=== PATIENT | male | born 1965 | race Caucasian/White ===

== ENCOUNTER 2024-10-26 16:16 | Emergency (ER) | payer OTHER, SELFPAY ==
[2024-10-26 16:19] VITALS: BP 178/105
--- NOTE | 2024-10-26 16:19 | ED.GENMED ---
ED Provider Triage
<Lulu Coffman PA-C - Last Filed: 10/26/24 16:23>
-
Patient seen by provider in Triage?: Seen in Triage
Attestation: A medical screening examination has been initiated by a qualified medical provider. Based on the assessment performed at this time, it has been determined that an emergent medical condition may exist and the patient has been informed
that further medical evaluation and possible additional diagnostic testing may be needed.
HPI: [id number] here with increasing BP over the past month. BP 161/91 today. C/o mild headache. No CP/SOB.
GENERAL: Alert , in no apparent distress
EYE: No visual abnormalities.
NECK: Trachea midline
ENT: No visible abnormalities.
LUNGS: No acute respiratory distress
NEUROLOGICAL: Alert and oriented
SKIN: Skin intact. No visible changes.
MUSCULOSKELETAL: Moving extremities normally
PSYCH: Normal and appropriate interaction.
This is a medical evaluation conducted in person to initiate diagnostic evaluation and provide initial therapeutics. Please see further documentation by the treating clinician.
Cardiac labs and EKG ordered.
History of Present Illness
<Lulu Coffman PA-C - Last Filed: 10/26/24 16:23>
General
Chief Complaint: Blood Pressure Problem
Time Seen by Provider: 10/26/24 16:39
<Adam Bond DO - Last Filed: 10/26/24 18:10>
History of Present Illness
History of Present Illness:
TIME OF INITIAL ENCOUNTER: 4:45 PM
HPI: The patient has been having headaches and neck pain over the last week. He took his blood pressure recently and it was in the 140s. He took it again this morning it was in the 190s. He came in here for further evaluation. He states that he
has associated neck pain only when he moves his neck. There has been no trauma. He does not have any history of high blood pressure. He has not seen his doctor in about a year or so. He states he is under a lot of stress. He intermittently had
an earache but not currently.
EXAM:
GENERAL: Well appearing in no distress
HEENT: Moist oral mucosa
NECK: Increased tightness noted to the paraspinal cervical musculature
CARDIOVASCULAR: No murmurs, normal heart rate, regular rhythm, No chest wall tenderness
PULMONARY: No respiratory distress, breath sounds are clear and equal
ABDOMEN: Soft with no peritoneal signs, no tenderness
NEUROLOGIC: Excellent strength all extremities, no coordination deficits
PSYCHIATRIC: Appropriate mental status, normal insight and judgement
EXTREMITIES: Nontender, no edema, moves all extremities equally
SKIN: No rash, no lesions
NUMBER AND COMPLEXITY OF PROBLEMS ADDRESSED AT THE ENCOUNTER
� Chronic conditions affecting care: Asthma
� Acute Exacerbation and/or Progression of Chronic Illness: This is an acute problem
� Differential Diagnosis includes: Undiagnosed high blood pressure, hypertensive urgency, intracranial hemorrhage/mass unlikely
AMOUNT AND/OR COMPLEXITY OF DATA TO BE REVIEWED AND ANALYZED
� I performed an independent evaluation of and my interpretation is:
EKG: Sinus 87, normal axis, baseline artifact, no acute ST abnormality
CT: Brain CT shows no acute abnormality
X-rays:
Laboratory Studies: CBC and chemistries unremarkable, troponin equal to 0.021 (patient has no chest pain and this was ordered from triage)
Other:
� Review of other/old records: The patient was seen here in 2018 with an acute febrile illness
� Clinical information was obtained by an independent historian: I spoke to at bedside
� Prescriptions/Medications Considered but not given: Declines any further analgesia
� Further testing considered but not performed:
RISK OF COMPLICATIONS AND/OR MORBIDITY OR MORTALITY OF PATIENT MANAGEMENT
� Social determinants of health affecting care: Lives at home
� Discussion with other providers:
� Escalation of care including admission/observation vs risk of discharge considered: The patient has new high blood pressure readings in the setting of headache and neck pain. Will try Tylenol. Will also obtain CT imaging of
the brain for further evaluation.
ANY OTHER UPDATES:
5:50 PM: The patient was given Tylenol, blood pressure remains elevated into the 160s. CT imaging negative. He declines any further analgesia but agrees to try blood pressure medication.
Past History
<Lulu Coffman PA-C - Last Filed: 10/26/24 16:23>
Past History
ED Past Medical History: Asthma and Other (Lyme disease)
ED Past Surgical History: Orthopedic (Left knee arthroscopy) and Other (Hernia repair)
Social History
Tobacco: Non-smoker
Alcohol: Occasional
Personal:
Living: with family
Employment: Employed
Family History
Family History: Other (Noncontributory)
Phy Exam
<Adam Bond DO - Last Filed: 10/26/24 18:10>
Physical Exam
Physical Exam:
See HPI
Course
<Lulu Coffman PA-C - Last Filed: 10/26/24 16:23>
Orders/Labs/Results
Orders:
Orders
10/26/24 16:22
Electrocardiogram (*1) Urgent
Reason for Study: Hypertension, Benign
EKG- Treatment ONCE
10/26/24 16:30
Complete Blood Count/With Diff Urgent
Comprehensive Metabolic Panel Urgent
Troponin I Urgent
10/26/24 16:49
CT Head W/o Iv Contrast Urgent
Comment:
Reason For Exam: STANLEY high BP
Acetaminophen [Tylenol] 1,000 mg PO NOW STA
10/26/24 17:51
Losartan [Cozaar] 50 mg PO NOW STA
Abnormal Lab Results
10/26/24
16:30
MPV 10.8 H fL
(7.4-10.4)
Glucose 110 H mg/dl
(70-99)
ALT 57 H U/L
(0-50)
Albumin 5.1 H g/dl
(3.5-5.0)
10/26/24 16:30
10/26/24 16:30
Vital Signs
Initial and Last Documented VS:
Initial Vital Signs
Temp Pulse Resp BP Pulse Ox
36.9 C 84 18 178/105 98
10/26/24 16:19 10/26/24 16:19 10/26/24 16:19 10/26/24 16:19 10/26/24 16:19
Last Documented Vital Signs
Temp Pulse Resp BP Pulse Ox
36.9 C 85 18 165/95 96
10/26/24 16:19 10/26/24 17:07 10/26/24 17:07 10/26/24 17:07 10/26/24 17:07
<Adam Bodn, - Last Filed: 10/26/24 18:10>
Orders/Labs/Results
Orders:
Orders
10/26/24 16:22
Electrocardiogram (*1) Urgent
Reason for Study: Hypertension, Benign
EKG- Treatment ONCE
10/26/24 16:30
Complete Blood Count/With Diff Urgent
Comprehensive Metabolic Panel Urgent
Troponin I Urgent
10/26/24 16:49
CT Head W/o Iv Contrast Urgent
Comment:
Reason For Exam: STANLEY high BP
Acetaminophen [Tylenol] 1,000 mg PO NOW STA
10/26/24 17:51
Losartan [Cozaar] 50 mg PO NOW STA
Abnormal Lab Results
10/26/24
16:30
MPV 10.8 H fL
(7.4-10.4)
Glucose 110 H mg/dl
(70-99)
ALT 57 H U/L
(0-50)
Albumin 5.1 H g/dl
(3.5-5.0)
10/26/24 16:30
10/26/24 16:30
Vital Signs
Initial and Last Documented VS:
Initial Vital Signs
Temp Pulse Resp BP Pulse Ox
36.9 C 84 18 178/105 98
10/26/24 16:19 10/26/24 16:19 10/26/24 16:19 10/26/24 16:19 10/26/24 16:19
Last Documented Vital Signs
Temp Pulse Resp BP Pulse Ox
36.9 C 85 18 165/95 96
10/26/24 16:19 10/26/24 17:07 10/26/24 17:07 10/26/24 17:07 10/26/24 17:07
<Adam Bond DO - Last Filed: 10/26/24 18:10>
*Critical Care Note
Total Time (30-74mins, 75-104mins- exclusive of procedures): Not Applicable
ED Attending Note
<Lulu Coffman PA-C - Last Filed: 10/26/24 16:23>
-
Portions of this chart may have been created with voice recognition software.� Occasional wrong word or��sound alike� substitutions may have occurred due to the inherent limitations of voice recognition software.
Discharge Plan
Departure
Patient Disposition: Home (Routine Discharge)
Date of Disposition: 10/26/24
Time of Disposition: 17:51
Patient with high blood pressure during this ER visit?: Yes
Discharge Problem:
Headache, High blood pressure
Instructions: High Blood Pressure (DC), BLOOD PRESSURE
Prescriptions:
New
losartan 50 mg tablet
50 mg PO DAILY Qty: 30 0RF
Referrals:
Pascual Leon DO [Family Provider] -
Activity Restrictions/Additional Instructions:
I am sending a prescription for losartan to your pharmacy. Next dose tomorrow. Return here if worse. Follow-up your primary care doctor. Basic blood work is normal. Your initial blood pressure here is 178 systolic and then repeat after Tylenol
was still high at 165.
Interventions
Interventions:
*Risk Screen - Suicide Last Done: 10/26/24 16:19
*General Assessment Last Done: 10/26/24 16:19
*Neglect/Abuse Screening Last Done: 10/26/24 16:19
*ED COVID-19 Vaccine History Last Done: 10/26/24 16:19
ED- Cardiac Assessment Last Done: 10/26/24 17:08
ED- Neurological Assessment Last Done: 10/26/24 17:08
ED- Pulmonary Assessment Last Done: 10/26/24 17:08
Discharge Date and Time
Print Language: TELUGU
[2024-10-26 16:50] LABS: % Basophils 0.2 % (0-2); % Eosinophils 1.6 % (0-6); % Immature Granulocytes 0.2 % (0-0.5); % Lymphocytes 30.3 % (20.5-51.1); % Monocytes 9.1 % (1.7-9.3); % Neutrophils 58.6 % (42.2-75.2); Absolute Eosinophils 0.1 10^3/uL (0-0.7); Absolute Lymphocytes 1.7 10^3/uL (1.2-3.4); Absolute Monocytes 0.5 10^3/uL (0.1-0.6); Absolute Neutrophils 3.2 10^3/uL (1.4-6.5); Hematocrit 44.3 % (39.0-52.0); Hemoglobin 15.6 g/dL (13.0-18.0); Mean Corp Hgb Conc. 35.2 g/dL (33.0-37.0); Mean Corpuscular Hgb 28.9 pg (27.0-31.0); Mean Platelet Volume 10.8 fL (7.4-10.4); Nucleated Red Blood Cells % 0 % (-); Platelet Count 171 10^3/uL (130-400); Red Cell Dist. Width 12.1 % (11.5-14.5); White Blood Cell Count 5.5 10^3/uL (4.8-10.8)
[2024-10-26 17:07] VITALS: BP 165/95
[2024-10-26 17:07] LABS: ALT (SGPT) 57 U/L (0-50); AST (SGOT) 37 U/L (17-59); Albumin 5.1 g/dl (3.5-5.0); Alkaline Phosphatase 80 U/L (38-126); Blood Urea Nitrogen 18 mg/dl (9-20); Calcium 9.7 mg/dl (8.4-10.2); Carbon Dioxide 27 mmol/L (22-30); Chloride 98 mmol/L (98-107); Glucose 110 mg/dl (70-99); Potassium 4.5 mmol/L (3.5-5.1); Sodium 135 mmol/L (135-145); Total Bilirubin 0.6 mg/dl (0.2-1.3); Total Protein 7.9 g/dl (6.3-8.2); eGFR > 60.00
[2024-10-26 17:16] LABS: Troponin I 0.021 ng/ml
[2024-10-26] MEDS: COZAAR 50 MG PO (18:14)
== END 2024-10-26 18:51 | disposition home or self-care (01) ==
LOC: EMR 16:16
PROVIDERS: Physician Assistant; EMERGENCY PHYSICIAN Emergency Medicine; FAMILY PHYSICIAN Family Medicine
DX: R51.9 Headache, unspecified (principal); M54.2 Cervicalgia; I10 Essential (primary) hypertension; J45.909 Unspecified asthma, uncomplicated; Z73.3 Stress, not elsewhere classified
CPT/HCPCS: 99284; 70450; 80053; 84484; 85025; 93005